=== PATIENT | male | born 1945 | race Caucasian/White ===

== ENCOUNTER 2019-04-13 05:47 | Outpatient (CLI) | payer MEDICARE, OTHER ==
[~2019-04-13] VITALS: Ht 182 cm; Wt 97.0 kg
[2019-04-13] MEDS ORDERED: GLUC100016 PO (14:36)
[2019-04-13] MEDS ORDERED: ATOR80TA64 PO (14:36)
[2019-04-13] MEDS ORDERED: MELO7.5T46 PO (14:36)
[2019-04-13] MEDS ORDERED: LISI-556 PO (14:36)
[2019-04-13] MEDS ORDERED: GABA-488 PO (14:36)
[2019-04-13] MEDS ORDERED: CALC-140 PO (14:36)
[2019-04-13] MEDS ORDERED: OMEG1CAP58 PO (14:36)
[2019-04-13] MEDS ORDERED: ASPI-999 PO (14:36)
== END 2019-04-13 14:45 | disposition home or self-care (01) ==
LOC: PREOP 05:47
PROVIDERS: ATTEND Otolaryngology Otolaryngology/Facial Plastic Surgery
DX: Z01.818 Encounter for other preprocedural examination (principal)

== ENCOUNTER 2019-04-27 08:43 | Day surgery (SDC) | payer MEDICARE, OTHER ==
[2019-04-27] VITALS (7 sets, daily range): BP systolic 141–152; BP diastolic 72–92
[~2019-04-27] VITALS: Ht 182 cm; Wt 97.0 kg
[~2019-04-27 08:43] MED LIST: ASPI-999 PO; ATOR80TA64 PO; CALC-140 PO; GABA-488 PO; GLUC100016 PO; LISI-556 PO; MELO7.5T46 PO; OMEG1CAP58 PO
--- NOTE | 2019-04-27 08:46 | Progress Note-Pre Operative ---
Pre-Operative Progress Note H&P Reviewed The H&P was reviewed, patient examined and no changes noted. Date Seen by Provider: Apr 27, 2019 Time Seen by Provider: 08:30 Date H&P Reviewed: Apr 27, 2019 Time H&P Reviewed: 08:30 Pre-Operative Diagnosis: Left DEON KEAGAN GIFFORD MD Apr 27, 2019 08:46
[2019-04-27] MEDS ORDERED: LACTATED RINGERS 1,000 ML IV PRN (08:51)
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
--- OUTSIDE RECORDS SUMMARY | 2019-04-27 09:07 | XMS REPORT | Continuity of Care Document ---
Author Organization Unknown Address Unknown Phone Unavailable Allergies Active Description Code Type Severity Reaction Onset Reported/Identified Relationship to Patient Clinical Status Yes No Known Drug Allergies [id number] Drug Allergy Unknown N/A 04/13/2019 Medications There is no data. Problems Date Dx Coded Attending Type Code Diagnosis Diagnosed By 04/13/2019 KEAGAN GIFFORD MD Ot Z01.818 ENCOUNTER FOR OTHER PREPROCEDURAL EXAMIN Procedures There is no data. Results There is no data. Encounters ACCT No. Visit Date/Time Discharge Status Pt. Type Provider Facility Loc./Unit Complaint [id number] 11/24/2018 15:49:48 11/24/2018 23:59: 59 CLS Loni Guerra [id number] 08/03/2018 09:33:51 08/03/2018 23:59: 59 CLS Outpatient Loni Schumacher [id number] 05/01/2013 14:53:06 05/01/2013 23:59: 59 CLS Outpatient eKagan Banegas [id number] 04/20/2019 09:00:00 23:59:59 CLS Preadmit KEAGAN GIFFORD MD [facility] CHRONIC OTITIS MEDIA [id number] 04/13/2019 05:47:00 14:45:00 DIS Outpatient KEAGAN GIFFORD MD [facility] PREOP CHRONIC OTITIS MEDIA
--- OUTSIDE RECORDS SUMMARY | 2019-04-27 09:07 | XMS REPORT ---
Author Keyur Prescott Organization [facility] Address [address] [place], [place] [address] Care Team Providers Care Platform Power Technician Name Role Phone Catalina Schumacher PCP Allergies and Adverse Reactions Name Reaction Notes NO KNOWN DRUG ALLERGIES Plan of Treatment Planned Activity Comments Planned Date Planned Time Plan/Goal CBC W/ AUTO DIFF (RFLX MAN DIFF IF IND). 08/03/2018 12:00 AM CMP 08/03/2018 12:00 AM TSH 08/03/2018 12:00 AM T4 FREE 08/03/2018 12:00 AM LIPID PANEL 08/03/2018 12:00 AM MAGNESIUM. 08/03/2018 12:00 AM VITAMIN D (25 HYDROXY) 08/03/2018 12:00 AM Medications Active Name Start Date Estimated Completion [...] Ordered Description Order Status 08/03/2018 12:00 AM ROUTINE VENIPUNCTURE Reviewed Results Summary Not available. History Of Immunizations Not available. History of [...] Date Medicare Part B Medicare Of [place] [id number] N/A Cigna Medicare Supplement Cigna Medicare Supplement [id number] N/A [employer] company [id number] N/A History of Encounters Visit Date Visit Type Provider 08/03/2018 Office visit Catalina Schumacher WHITE MIXING OPERATOR 05/01/2013 Office visit Mohamud Banegas MD
[2019-04-27] MEDS ORDERED: SEVOFLURANE (ULTANE) 15 ML INHAL SOLN ONE ×2 (09:42→10:11)
[2019-04-27] MEDS ORDERED: ONDANSETRON 4 MG/2 ML (SDV) Z0FRAN ONE (09:42)
[2019-04-27] MEDS ORDERED: LIDOCAINE PF 2% 5 ML (XYLOCAINE) VIAL ONE (09:42)
[2019-04-27] MEDS ORDERED: fentaNYL INJECTION 100 MCG/2 ML AMP ONE (09:43)
[2019-04-27 09:48] LABS: BASOPHILS % (AUTO) 1 % (0-10); EOSINOPHILS # (AUTO) 0.1 10^3/uL (0.0-0.3); EOSINOPHILS % (AUTO) 3 % (0-10); HEMATOCRIT 39 % (40-54); HEMOGLOBIN 13.4 G/DL (13.3-17.7); LYMPHOCYTES # (AUTO) 0.9 X 10^3 (1.0-4.0); LYMPHOCYTES % (AUTO) 26 % (12-44); MEAN CORPUSCULAR HEMOGLOBIN 34 PG (25-34); MEAN CORPUSCULAR HGB CONC 34 G/DL (32-36); MEAN CORPUSCULAR VOLUME 100 FL (80-99); MEAN PLATELET VOLUME 10.7 FL (7.4-10.4); MONOCYTES # (AUTO) 0.5 X 10^3 (0.0-1.0); MONOCYTES % (AUTO) 14 % (0-12); NEUTROPHILS # (AUTO) 2.1 X 10^3 (1.8-7.8); NEUTROPHILS % (AUTO) 57 % (42-75); PLATELET COUNT 116 10^3/uL (130-400); WHITE BLOOD COUNT 3.6 10^3/uL (4.3-11.0)
[2019-04-27 10:05] LABS: BUN/CREATININE RATIO 9; CALCIUM 9.2 MG/DL (8.5-10.1); CARBON DIOXIDE 27 MMOL/L (21-32); CHLORIDE 105 MMOL/L (98-107); CREATININE SERUM 0.98 MG/DL (0.60-1.30); GFR ESTIMATED > 60; GLUCOSE 87 MG/DL (70-105); POTASSIUM 4.3 MMOL/L (3.6-5.0); SODIUM 141 MMOL/L (135-145)
[2019-04-27] MEDS ORDERED: proPOfol 200 MG/20 ML (DIPRIVAN) VIAL IV ONE (10:11)
--- NOTE | 2019-04-27 10:39 | Progress Note-Post Operative ---
Post-Operative Progess Note Surgeon (s)/Automotive Specialty Technician (s) Surgeon KEAGAN GIFFORD MD Automotive Specialty Technician n/a Pre-Operative Diagnosis Left DEON Post-Operative Diagnosis same Post-Op Procedure Note Date of Procedure: Apr 27, 2019 Name of Procedure Performed: BMT Description & Findings Description and Findings: n/a Anesthesia Type lma Estimated Blood Loss minimal Packing none. Specimen(s) collected/removed tonsils KEAGAN GIFFORD MD Apr 27, 2019 10:39
[2019-04-27] MEDS ORDERED: APAP 325 MG/10.15 ML LIQ (TYLENOL) UDC PO PRN (10:45)
[2019-04-27] MEDS ORDERED: GENT5DRO30 LEFT EAR (12:04)
--- NOTE | 2019-05-01 07:15 | Anesthesia-General Post-Op ---
General Patient Condition Mental Status/LOC: Same as Preop Cardiovascular: Satisfactory Nausea/Vomiting: Absent Respiratory: Satisfactory Pain: Controlled Complications: Absent Post Op Complications Complications None Follow Up Care/Instructions Patient Instructions None needed. Anesthesia/Patient Condition Patient Condition Patient is doing well, no complaints, stable vital signs, no apparent adverse anesthesia problems. No complications reported per nursing. CARLYN BARNEY CRNA May 01, 2019 07:15
== END 2019-04-27 12:15 | disposition home or self-care (01) ==
LOC: SDC 08:43
PROVIDERS: ATTEND Otolaryngology Otolaryngology/Facial Plastic Surgery
DX: H65.23 Chronic serous otitis media, bilateral (principal); H72.91 Unspecified perforation of tympanic membrane, right ear; Z11.2 Encounter for screening for other bacterial diseases; I10 Essential (primary) hypertension; I25.10 Atherosclerotic heart disease of native coronary artery without angina pectoris; E78.5 Hyperlipidemia, unspecified; G47.33 Obstructive sleep apnea (adult) (pediatric); G62.9 Polyneuropathy, unspecified; M79.7 Fibromyalgia; M19.91 Primary osteoarthritis, unspecified site; Z96.653 Presence of artificial knee joint, bilateral; Z96.649 Presence of unspecified artificial hip joint; Z79.82 Long term (current) use of aspirin; Z79.899 Other long term (current) drug therapy
CPT/HCPCS: 36415; 80048; 85025; 87081

== ENCOUNTER 2020-11-20 10:47 | Outpatient (CLI) | payer MEDICARE, OTHER ==
[~2020-11-20] VITALS: Ht 182 cm; Wt 97.0 kg
[~2020-11-20 10:47] MED LIST changes: +GENT5DRO30 LEFT EAR; -LISI-556 PO; +LISI-729 PO
[2020-11-20] MEDS ORDERED: CHOL-34 PO (10:59)
[2020-11-20] MEDS ORDERED: ZINC50TA58 PO (10:59)
[2020-11-21] MEDS ORDERED: GARAMYCIN OPTH EACH EAR (08:38)
== END 2020-11-20 11:08 ==
LOC: PREOP 10:47
PROVIDERS: ATTEND Otolaryngology Otolaryngology/Facial Plastic Surgery
DX: Z01.818 Encounter for other preprocedural examination (principal)

== ENCOUNTER → 2020-11-21 | Day surgery (SDC) | payer MEDICARE, OTHER ==
[2020-11-21] VITALS (10 sets, daily range): BP systolic 103–138; BP diastolic 64–83
[~2020-11-21] VITALS: Ht 182 cm; Wt 97.0 kg
[~2020-11-21] MED LIST changes: +APAP 325 MG/10.15 ML LIQ (TYLENOL) UDC PO PRN; +CHOL-34 PO; +GARAMYCIN OPTH EACH EAR; +LACTATED RINGERS 1,000 ML IV PRN; +LIDOCAINE PF 2% 5 ML (XYLOCAINE) VIAL ONE; +ONDANSETRON 4 MG/2 ML (SDV) Z0FRAN ONE; +SEVOFLURANE (ULTANE) 15 ML INHAL SOLN ONE; +ZINC50TA58 PO; +fentaNYL INJ 100 MCG/2 ML AMP ONE; +proPOfol 200 MG/20 ML (DIPRIVAN) VIAL IV ONE
--- NOTE | 2020-11-21 07:08 | Progress Note-Pre Operative ---
Pre-Operative Progress Note H&P Reviewed The H&P was reviewed, patient examined and no changes noted. Date Seen by Provider: Nov 21, 2020 Time Seen by Provider: 07:00 Date H&P Reviewed: Nov 21, 2020 Time H&P Reviewed: 07:00 Pre-Operative Diagnosis: KEAGAN Ta MD Nov 21, 2020 07:07
--- NOTE | 2020-11-21 07:08 | Progress Note-Post Operative ---
Post-Operative Progess Note Surgeon (s)/Skimmer Scoop Operator (s) Surgeon KEAGAN GIFFORD MD Skimmer Scoop Operator n/a Pre-Operative Diagnosis Bilat DEON Post-Operative Diagnosis same Post-Op Procedure Note Date of Procedure: Nov 21, 2020 Name of Procedure Performed: BMT Description & Findings Description and Findings: n/a Anesthesia Type mask Estimated Blood Loss minimal Packing none. Specimen(s) collected/removed none KEAGAN GIFFORD MD Nov 21, 2020 07:08
--- NOTE | 2020-11-21 12:46 | Anesthesia-General Post-Op ---
General Patient Condition Mental Status/LOC: Same as Preop Cardiovascular: Satisfactory Nausea/Vomiting: Absent Respiratory: Satisfactory Pain: Controlled Complications: Absent Post Op Complications Complications None Follow Up Care/Instructions Patient Instructions None needed. Anesthesia/Patient Condition Patient Condition Patient is doing well, no complaints, stable vital signs, no apparent adverse anesthesia problems. No complications reported per nursing. CRYSTAL WEBB CRNA Nov 21, 2020 12:46
== END ==
LOC: SDC 06:00
PROVIDERS: ATTEND Otolaryngology Otolaryngology/Facial Plastic Surgery
DX: H65.23 Chronic serous otitis media, bilateral (principal); I10 Essential (primary) hypertension; I25.10 Atherosclerotic heart disease of native coronary artery without angina pectoris; I25.119 Atherosclerotic heart disease of native coronary artery with unspecified angina pectoris; E78.5 Hyperlipidemia, unspecified; G47.33 Obstructive sleep apnea (adult) (pediatric); Z99.89 Dependence on other enabling machines and devices; Z79.82 Long term (current) use of aspirin; Z79.899 Other long term (current) drug therapy
CPT/HCPCS: 87081

== ENCOUNTER 2022-01-26 08:18 | Outpatient (CLI) | payer MEDICARE, OTHER ==
[~2022-01-26] VITALS: Ht 182.2 cm; Wt 90.0 kg
[~2022-01-26 08:18] MED LIST changes: -APAP 325 MG/10.15 ML LIQ (TYLENOL) UDC PO PRN; -LACTATED RINGERS 1,000 ML IV PRN; -LIDOCAINE PF 2% 5 ML (XYLOCAINE) VIAL ONE; -LISI-729 PO; +LISI5TAB20 PO; -ONDANSETRON 4 MG/2 ML (SDV) Z0FRAN ONE; -SEVOFLURANE (ULTANE) 15 ML INHAL SOLN ONE; -fentaNYL INJ 100 MCG/2 ML AMP ONE; -proPOfol 200 MG/20 ML (DIPRIVAN) VIAL IV ONE
[2022-01-28] MEDS ORDERED: FLUT1BLS3 IH (16:16)
[2022-01-28] MEDS ORDERED: GUAI1CAP51 PO (16:16)
[2022-01-28] MEDS ORDERED: FLUT9.9S NS (16:16)
== END 2022-01-28 16:46 ==
LOC: PREOP 08:18
PROVIDERS: ATTEND Otolaryngology Otolaryngology/Facial Plastic Surgery
DX: Z01.818 Encounter for other preprocedural examination (principal); H66.93 Otitis media, unspecified, bilateral

== ENCOUNTER 2022-01-30 06:51 | Day surgery (SDC) | payer MEDICARE, OTHER ==
[2022-01-30] VITALS (10 sets, daily range): BP systolic 105–144; BP diastolic 65–89
[~2022-01-30 06:51] MED LIST changes: +FLUT1BLS3 IH; +FLUT9.9S NS; +GUAI1CAP51 PO
--- NOTE | 2022-01-30 07:04 | Progress Note-Pre Operative ---
Pre-Operative Progress Note Date of Available H&P: Jan 30, 2022 Date H&P Reviewed: Jan 30, 2022 Time H&P Reviewed: 07:00 History & Physical: H&P Reviewed, Patient Examed, No changes noted Changes from last HP none Pre-Operative Diagnosis: KEAGAN Ta MD Jan 30, 2022 07:04
--- NOTE | 2022-01-30 07:05 | Progress Note-Post Operative ---
Post-Operative Progess Note Surgeon (s)/Investment Associate (s) Surgeon KEAGAN GIFFORD MD Investment Associate n/a Pre-Operative Diagnosis Bilat DEON Post-Operative Diagnosis same Post-Op Procedure Note Date of Procedure: Jan 30, 2022 Name of Procedure Performed: BMT Description & Findings Description and Findings: n/a Anesthesia Type lma Estimated Blood Loss minimal Packing none. Specimen(s) collected/removed none KEAGAN GIFFORD MD Jan 30, 2022 07:05
[2022-01-30] MEDS ORDERED: APAP 325 MG/10.15 ML LIQ (TYLENOL) UDC PO PRN (07:15)
[2022-01-30] MEDS ORDERED: LACTATED RINGERS 1,000 ML IV PRN (07:45)
[2022-01-30] MEDS ORDERED: proPOfol 200 MG/20 ML (DIPRIVAN) VIAL IV ONE (07:47)
[2022-01-30] MEDS ORDERED: ONDANSETRON 4 MG/2 ML (SDV) Z0FRAN ONE (07:47)
[2022-01-30] MEDS ORDERED: LIDOCAINE PF 2% 5 ML (XYLOCAINE) VIAL ONE (07:47)
[2022-01-30] MEDS ORDERED: fentaNYL INJ 100 MCG/2 ML AMP ONE (07:47)
[2022-01-30] MEDS ORDERED: SEVOFLURANE (ULTANE) 15 ML INHAL SOLN ONE (08:06)
[2022-01-30] MEDS ORDERED: OFLO5DRO33 EACH EAR (09:27)
--- NOTE | 2022-01-30 10:44 | Anesthesia-General Post-Op ---
General Patient Condition Mental Status/LOC: Same as Preop Cardiovascular: Satisfactory Nausea/Vomiting: Absent Respiratory: Satisfactory Pain: Controlled Complications: Absent Post Op Complications Complications None Follow Up Care/Instructions Patient Instructions None needed. Anesthesia/Patient Condition Patient Condition Patient was doing well this morning after the procedure with no complaints, stable vital signs, no apparent adverse anesthesia problems. No complications reported per nursing. NAOMI GRANADOS DO Jan 30, 2022 10:44
== END 2022-01-30 10:00 | disposition home or self-care (01) ==
LOC: SDC 06:51
PROVIDERS: ATTEND Otolaryngology Otolaryngology/Facial Plastic Surgery
DX: H65.33 Chronic mucoid otitis media, bilateral (principal); H90.6 Mixed conductive and sensorineural hearing loss, bilateral
CPT/HCPCS: 87081